=== PATIENT | female | born 1960 | race American Indian/Alaskan Native ===

== ENCOUNTER 2017-02-23 17:20 | Emergency (ER) | payer OTHER ==
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
[2017-02-24 03:28] VITALS: BP 154/96
== END 2017-02-23 22:39 | disposition home or self-care (01) ==
LOC: ED 17:20
DX: M25.512 Pain in left shoulder (principal); M62.830 Muscle spasm of back; I10 Essential (primary) hypertension; E11.9 Type 2 diabetes mellitus without complications; M19.90 Unspecified osteoarthritis, unspecified site; J45.909 Unspecified asthma, uncomplicated; Z79.82 Long term (current) use of aspirin; V43.52XA Car driver injured in collision with other type car in traffic accident, initial encounter; Y93.9 Activity, unspecified; Y99.9 Unspecified external cause status; Y92.410 Unspecified street and highway as the place of occurrence of the external cause
CPT/HCPCS: 99283

== ENCOUNTER 2017-03-09 15:30 | Emergency (ER) | payer SELFPAY ==
[2017-03-09 16:03] VITALS: BP 139/81
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
--- NOTE | 2017-03-09 18:05 | Cat Scan Report ---
FINAL REPORT EXAM: CT LUMBAR SPINE WO CON HISTORY: radiculopathy BLE TECHNIQUE: Spiral high-resolution unenhanced 1.25 millimeter axial images were obtained through the lumbar spine. Sagittal and coronal plane are reconstructions were performed. PRIORS: None. FINDINGS: Counting reference: Lumbosacral junction. For the purposes of this report, L4-L5 is considered the level of the iliac crest. Bone marrow/ Fracture: No evidence for acute or chronic fracture is seen. No evidence of a lytic or blastic process in the visualized spine. Alignment: Alignment is anatomic. T12-L1: Canal and foramina are patent. L1-L2: Canal and foramina are patent. L2-L3: Canal and foramina are patent. L3-L4: There is a significant left-sided disc bulge causing significant neural foraminal narrowing and compression of the left nerve root. L4-L5: Canal and foramina are patent. L5-S1: Canal and foramina are patent. Paraspinal soft tissues: The paraspinal soft tissues show no evidence for paravertebral hematoma or soft tissue mass. Sacrum and iliac wings: Visualized portions of the sacrum and iliac wings appear intact without fracture. There is degenerative sclerosis on both sides of the SI joints bilaterally. The presacral soft tissues are normal in appearance. IMPRESSION: 1. No evidence of acute fracture. 2. Left-sided disc bulge at L3-L4 causing neural foraminal narrowing and compression of the left nerve root. 3. Rib changes involving the SI joints bilaterally.
[2017-03-09 18:28] LABS: Basophils % (Auto) 1.2 % (0.0-1.8); Eosinophils % (Auto) 1.6 % (0.0-4.3); Hematocrit 39.5 % (30.3-42.9); Hemoglobin 12.9 gm/dl (10.1-14.3); Mean Corpuscular HGB Conc 33 % (30-34); Mean Corpuscular Hemoglobin 31 pg (28-32); Mean Corpuscular Volume 95 fl (79-97); Platelet Count 263 K/mm3 (140-440); Red Blood Count 4.15 M/mm3 (3.65-5.03); Red Cell Distribution Width 13.9 % (13.2-15.2); White Blood Count 6.4 K/mm3 (4.5-11.0)
[2017-03-09 18:54] LABS: Alanine Aminotransferase 26 units/L (7-56); Albumin 4.4 g/dL (3.9-5); Albumin/Globulin Ratio 1.8 %; Alkaline Phosphatase 72 units/L (35-129); BUN/Creatinine Ratio 13; Blood Urea Nitrogen 8 mg/dL (7-17); Calcium 9.7 mg/dL (8.4-10.2); Carbon Dioxide 25 mmol/L (22-30); Glucose 98 mg/dL (65-100); Total Protein 6.9 g/dL (6.3-8.2)
[2017-03-09 18:55] LABS: Anion Gap 22 mmol/L; Potassium 4.3 mmol/L (3.6-5.0); Sodium 144 mmol/L (137-145)
[2017-03-09 21:04] LABS: Bacteria,Urine 2+ /HPF (Negative); Bilirubin,Urine NEG (Negative); Blood,Urine NEG (Negative); Ketones,Urine NEG (Negative); Leukocyte Esterase,Urine NEG (Negative); Mucus,Urine FEW /HPF; Nitrite,Urine NEG (Negative); Protein,Urine <15 mg/dL mg/dL (Negative); Urobilinogen,Urine < 2.0 mg/dL (<2.0)
== END 2017-03-10 00:58 | disposition left against medical advice (07) ==
LOC: ED 15:30
DX: R42 Dizziness and giddiness (principal); R20.2 Paresthesia of skin; M25.552 Pain in left hip; Z53.21 Procedure and treatment not carried out due to patient leaving prior to being seen by health care provider
CPT/HCPCS: 36415; 72131; 80053; 81001; 82962; 85025; 93005; 93010

== ENCOUNTER 2019-02-08 11:06 | Outpatient (CLI) | payer OTHER ==
--- NOTE | 2019-02-08 12:45 | Vascular Lab Report ---
DUPLEX DOPPLER LOWER EXTREMITY VEINS, BILATERAL INDICATION: M74.89 OTHER SPECIFIED SOFT TISSUE DISORDER/M79.662 PAIN IN L LOW. Bilateral leg pain. D iabetes. TECHNIQUE: Duplex doppler imaging was performed through the veins of both lower extremities using ve nous compression and other maneuvers. COMPARISON: No relevant prior imaging study available. FINDINGS: Right Common femoral vein: Negative. Right Superficial femoral vein: Negative. Right Popliteal vein: Negative. Right Calf veins: Negative. Left Common femoral vein: Negative. Left Superficial femoral vein: Negative. Left Popliteal vein: Negative. Left Calf veins: Negative. Additional findings: None.. IMPRESSION: No sonographic evidence for DVT in either lower extremity. Signer Name: Chico Gaxiola Jr, MD Signed: 02/08/2019 12:40 PM Workstation Name: [id number]
== END 2019-02-08 11:07 | disposition home or self-care (01) ==
LOC: VAS 11:06
PROVIDERS: ATTEND Podiatrist Foot & Ankle Surgery
DX: M79.89 Other specified soft tissue disorders (principal); M79.662 Pain in left lower leg
CPT/HCPCS: 93970

== ENCOUNTER 2019-05-03 12:31 | Outpatient (CLI) | payer OTHER ==
--- NOTE | 2019-05-03 14:18 | Ultrasound Report ---
ULTRASOUND-GUIDED CORE NEEDLE BIOPSY Right BREAST WITH CLIP PLACEMENT CLINICAL: Right breast mass identified at outside facility. COMPARISON: 04/10/2019 FINDINGS: The procedure was explained to the patient and informed consent was obtained. Targeted ultrasound demonstrated a now 1.2 x 3 x 1.2 cm mass at the 9:00 position, 6 cm from the nipp le. Prior outside ultrasound showed this mass to be smaller in size and located at the 7:00 position. The increase in size may represent increasing size of a cystic lesion as the appearance during biops y suggested it may represent a cyst. A targeted ultrasound of the right breast at the 7:00 and [facility] tissue shows no additional lesions. The breast was marked with a felt tip marker and a timeout was called. The skin was prepped with Chlo ro-Prep and anesthetized with 1% lidocaine. A small incision was made and a 14-gauge spring loaded core biopsy needle was advanced to the lesion. Four cores were obtained and placed in formalin. A clip was deployed within the lesion. The patient tolerated the procedure well and there were no immediate complications. Hemostasis was ac hieved with minimal effort and a sterile dressing was applied. A post procedure mammogram demonstrated concordant clip deployment. Patient left the department in go od condition and was given instructions for wound care and follow-up. IMPRESSION: Technically successful ultrasound guided core biopsy of right breast mass at the 9:00 position with a ccurate placement of a U shaped biopsy marker. Patient is scheduled to follow up with her ordering clinician for pathology results. Signer Name: Jono Higgins MD Signed: 05/03/2019 2:13 PM Workstation Name: [id number]
== END 2019-05-03 12:32 | disposition home or self-care (01) ==
LOC: SPVWC 12:31
PROVIDERS: ATTEND Student in an Organized Health Care Education/Training Program
DX: N63.11 Unspecified lump in the right breast, upper outer quadrant (principal); R92.2 Inconclusive mammogram; I10 Essential (primary) hypertension; J45.909 Unspecified asthma, uncomplicated; M19.90 Unspecified osteoarthritis, unspecified site; Z90.710 Acquired absence of both cervix and uterus; Z79.84 Long term (current) use of oral hypoglycemic drugs; Z79.82 Long term (current) use of aspirin
CPT/HCPCS: 88305